=== PATIENT | female | born 1980 | race Hispanic/Latino ===

== ENCOUNTER 2019-01-16 20:17 | Emergency (ER) | payer BC ==
[~2019-01-16] VITALS: Ht 165.1 cm; Wt 65.8 kg
[2019-01-16] MEDS ORDERED: CYCLOBENZAPRINE10 MG PO (22:00)
== END 2019-01-16 22:22 | disposition home or self-care (01) ==
LOC: ED 20:17
DX: G89.29 Other chronic pain (principal); M54.5 Low back pain
CPT/HCPCS: 81001; 84703; 99283

== ENCOUNTER 2020-03-02 23:04 | Emergency (ER) | payer BC ==
[~2020-03-02] VITALS: Ht 165.1 cm; Wt 65.8 kg
[~2020-03-02 23:04] MED LIST: CYCLOBENZAPRINE10 MG PO
--- OUTSIDE RECORDS SUMMARY | 2020-03-02 23:08 | XMS ---
PreManage Notification: SANTOS GRADY [employer] No recent Security Events currently on file CRITERIA MET - PDMP CARE PROVIDERS KATHY RODRIGUES [facility] Current PHONE: Unknown Clare has no Care Guidelines for this patient. [facility].DZack [facility] (12 MO.) [facility] TOTAL 4 NOTE: Visits indicate total known visits. ED/C VISIT TRACKING (12 MO.) 03/02/2020 23:05 NOEMI Albarran TYPE: Emergency COMPLAINT: - ABDOMINAL PAIN 01/21/2020 17:34 [facility] TYPE: Emergency DIAGNOSES: - Right upper quadrant pain - Gastritis, unspecified, without bleeding - Abdominal Pain - Nausea - Epigastric pain 12/23/2019 16:52 [facility] TYPE: Emergency DIAGNOSES: - Personal history of other diseases of the musculoskeletal sys - Flank Pain - Sciatica, unspecified side - Back Pain - Muscle spasm of back 11[facility]29/2019 08:45 [facility]: [facility] DIAGNOSES: - Spinal stenosis, 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
[2020-03-02] MEDS ORDERED: TETRACYCLINE H500 MG PO (23:26)
[2020-03-02] MEDS ORDERED: FLAGYL500 MG PO (23:26)
[2020-03-02] MEDS ORDERED: OMEPRAZOLE20 MG PO (23:27)
--- NOTE | 2020-03-03 12:38 | EKG ---
[facility] [address] [place], [place] [address] Signed Normal sinus rhythm Low voltage QRS Cannot rule out Anterior infarct , age undetermined Abnormal ECG Confirmed by PORSHA CHAPA MD ([id number]) on 03/03/2020 12:38:25 PM Electronically Signed By: PORSHA CHAPA MD 03/03/20 1238 PATIENT NAME: SANTOS GRADY VINH Electrocardiogram DATE OF : 76 PHYSICIAN: PORSHA CHAPA MD REPORT #: [id number] REPORT IS CONFIDENTIAL AND NOT TO BE RELEASED WITHOUT AUTHORIZATION
== END 2020-03-03 02:49 | disposition home or self-care (01) ==
LOC: ED 23:04
DX: R10.13 Epigastric pain (principal); Z79.899 Other long term (current) drug therapy
CPT/HCPCS: 80053; 81001; 83690; 84484; 84703; 85025; 93005; 93010; 96374; 96375; 99284-25; J1200; J1630; J2405

== ENCOUNTER 2024-12-27 17:48 | Emergency (ER) | payer BC ==
[~2024-12-27] VITALS: Ht 165.1 cm; Wt 74.0 kg
[~2024-12-27 17:48] MED LIST changes: +FLAGYL500 MG PO; +OMEPRAZOLE20 MG PO; +TETRACYCLINE H500 MG PO
[2024-12-27] MEDS ORDERED: FAMOTIDINE20 MG PO (20:23)
[2024-12-27] MEDS ORDERED: SUCRALFATE1 GM PO (20:23)
[2024-12-27] MEDS ORDERED: ESOMEPRAZOLE MA40 MG PO (20:23)
[2024-12-27 20:31] LABS: BILIRUBIN, URINE NEGATIVE (negative); BLOOD/HGB, URINE SMALL (Negative); KETONE, URINE NEGATIVE (Negative); LEUK ESTERASE, URINE NEGATIVE (negative); NITRITE, URINE NEGATIVE (negative)
[2024-12-27 20:38] LABS: BACTERIA, URINE RARE /hpf (negative); CASTS, URINE NONE SEEN \\lpf; COLLECTION TYPE, URINE CLEAN CATCH; CRYSTALS, URINE NONE SEEN (0-1+); EPITHELIAL CELLS, URINE SQUAMOUS 1+ /lpf (0-1+); REFLEX CULTURE, URINE No (No)
[2024-12-27 20:40] LABS: BASOPHILS 0.8 % (0.1-1.2); HEMATOCRIT 32.8 % (34.1-44.9); HEMOGLOBIN 10.1 g/dL (11.2-15.7); LYMPHOCYTES 33.1 % (19.3-51.7); MCH 23.3 PG (25.6-32.2); MCHC 30.8 g/dL (32.2-35.5); MCV 75.6 fL (79.4-94.8); MONOCYTES 7.3 % (4.7-12.5); NEUTROPHILS 50.6 % (34.0-71.1); PLATELET COUNT 589 K/uL (182-369); RBC 4.34 M/uL (3.93-5.22)
[2024-12-27 20:56] LABS: ALBUMIN/GLOBULIN RATIO 0.79 (1.1-2.4); ANION GAP 12.4 (7-21); BILIRUBIN, TOTAL 0.2 mg/dL (0.2-1.0); BUN/CREATININE RATIO 16.9 (6.0-28.6); CALCIUM 8.5 mg/dL (8.5-10.1); CREATININE, SERUM 0.71 mg/dL (0.55-1.02); POTASSIUM 3.4 mmol/L (3.5-5.1); PROTEIN, TOTAL 6.8 g/dL (6.4-8.2)
[2024-12-27] MEDS ORDERED: KETOROLAC TROMETHAMINE 30 MG/ML VIAL IV ONE (21:45)
[2024-12-27] MEDS ORDERED: ondansetron HCL 4 MG/2 ML VIAL IV ONE (21:45)
[2024-12-27] MEDS ORDERED: FAMOTIDINE 20 MG/ 2 ML VIAL IV ONE (21:45)
[2024-12-27] MEDS ORDERED: LACTATED RINGER'S 1,000 ML IV ONE (22:00)
[2024-12-27 23:40] VITALS: BP 98/60
== END 2024-12-27 23:40 | disposition home or self-care (01) ==
LOC: ED 17:48
PROVIDERS: Internal Medicine
DX: K21.9 Gastro-esophageal reflux disease without esophagitis (principal); Z79.899 Other long term (current) drug therapy
CPT/HCPCS: 36415; 76705; 80053; 81001; 83690; 84703; 85025; 96374; 96375; 99284-25; J1885; J2405; J7121